=== PATIENT | male | born 1970 | race Caucasian/White ===

== ENCOUNTER 2024-06-18 04:43 | Day surgery (SDC) | payer BC, OTHER ==
[2024-06-12 14:45] VITALS: BMI 33.2
[2024-06-18 10:50] VITALS: TEMP 97.2
[2024-06-18 11:22] VITALS: RESP 18
[2024-06-18 11:23] VITALS: BP 109/66; PULSE 69
== END 2024-06-18 11:41 | disposition home or self-care (01) ==
LOC: JASU-ENDO 04:43
PROVIDERS: ATTEND Internal Medicine Gastroenterology
PROC: 0DBL8ZX Excision of Transverse Colon, Via Natural or Artificial Opening Endoscopic, Diagnostic (ICD-10-PCS; principal; 2024-06-18 10:00)
DX: Z12.11 Encounter for screening for malignant neoplasm of colon (principal); D12.3 Benign neoplasm of transverse colon; Z80.0 Family history of malignant neoplasm of digestive organs; K64.8 Other hemorrhoids
CPT/HCPCS: 88305-TC